=== PATIENT | male | born 1995 | race Caucasian/White ===

== ENCOUNTER 2019-08-21 12:26 | Emergency (ER) | payer OTHER, SELFPAY ==
[2019-08-21 12:51] VITALS: BP 155/96; PULSE 88; RESP 16; TEMP 37.2; O2SAT 97
--- NOTE | 2019-08-21 13:01 | ED.GENADULT ---
HPI - General Adult General Chief complaint: Headache Stated complaint: migraines Time Seen by Provider: 08/21/19 13:01 Source: patient and RN notes reviewed Mode of arrival: ambulatory Limitations: no limitations History of Present Illness HPI narrative: 24-year-old male presents with complains of intermittent headache with aura of nausea and vomiting for past 3 days. Tylenol, last on 08/20/19 and cold wash cloth with relief, no treatment today. Currently pain and nausea free. [facility] says RICHARDS is not the WORST of his life. No neck stiffness. No fever or chills. No URI symptoms. Gradual onset started 2 days ago. No head injury. Denies history of migraine. Denies dizziness, vision change, confusion, or seizure activity. The patient reports they have not been diagnosed with COVID-19. The patient reports they are not waiting for the results of a COVID-19 lab test. The patient reports they do not have fever, chills, weakness, fatigue, myalgia, or facial swelling. The patient reports they do not have a new or worsening cough or shortness of breath. Denies chest pain. The patient reports they do not have any rhinorrhea, congestion, sore throat, abdominal pain, and diarrhea. Tolerating po intake well. Denies recent traveling. Denies concerns for COVID-19 or exposures been home since [id number] order except for essential household needs, working, and return home. At this time, patient is not suspected of having COVID-19. Some parts of this dictation were generated by voice recognition software and may contain typographical and/or grammatical inaccuracies. Related Data Allergies Allergy/AdvReac Type Severity Reaction Status Date / Time amoxicillin Allergy Mild Rash Verified 10/01/17 11:58 Review of Systems Review of Systems: Narrative: CONSTITUTIONAL: Denies fever, chills, sweats. EYES: Denies visual changes, redness, discharge. ENT: Denies rhinorrhea, congestion, sore throat, otalgia. CARDIOVASCULAR: Denies chest pain, palpitations, edema. RESPIRATORY: Denies dyspnea, wheezing, cough. GASTROINTESTINAL: Denies abdominal pain, or diarrhea. Complains of intermittent nausea, vomiting-Resolved. GENITOURINARY: Denies dysuria, hematuria, abnormal discharge. SKIN: Denies rash or itching. MUSCULOSKELETAL: Denies acute back pain, joint pain, or myalgia. NEUROLOGIC: Denies numbness or focal weakness. Complaints of intermittent headache-Resolved. PSYCHIATRIC: Denies anxiety or depression. All systems reviewed & are unremarkable except as noted in HPI and below. [facility] Past Medical History Medical History (Updated 08/21/19 @ 13:26 by VIVI Thibodeaux) Allergies Surgical History Surgical History (Updated 08/21/19 @ 13:26 by VIVI Thibodeaux) No significant past surgical history Family History Family History (Updated 08/21/19 @ 13:26 by VIVI Thibodeaux) Father Alive and well Mother Diabetes mellitus Social History Social History (Updated 08/21/19 @ 13:27 by VIVI Thibodeaux) Smoking packs per day: 0.25 Smoking cigarettes per day: 5.0 Years smoked: 6 Smoking pack-years: 1.50 Smoking status: Light tobacco smoker Tobacco type: cigarettes Second hand tobacco smoke exposure: No Alcohol intake: current Substance use: never Living arrangements: with family Occupation/Education: occupation Gender identity (if verbalized by the patient): Male Comments At time of signature, agree with nurse past medical, surgical, social, and family history. There is no relevant family history pertinent to the presenting complaint. Exam Narrative: Exam Narrative: GENERAL: This is a well-nourished, well-developed patient, in no apparent distress. Talks in full sentences, no language deficiencies and ambulates with steady gait without dyspnea. HEAD: normocephalic, atraumatic. EYES: PERRL. Sclera clear/white. Vision is grossly intact. EOMI, no nystagmus noted. EARS: External ears normal, au
== END 2019-08-21 13:27 | disposition home or self-care (01) ==
PROVIDERS: Emergency Provider Nurse Practitioner Family
DX: R51 Headache (principal); Z20.828 Contact with and (suspected) exposure to other viral communicable diseases; F17.210 Nicotine dependence, cigarettes, uncomplicated
CPT/HCPCS: 99213; G0463

== ENCOUNTER 2020-04-30 06:50 | Outpatient (NON) | payer OTHER, SELFPAY ==
[2020-04-30 17:33] LABS: SARS-CoV-2 RNA PCR Negative
== END 2020-04-30 06:51 ==
PROVIDERS: Family Provider Internal Medicine; Visit Provider Nurse Practitioner
DX: R05 Cough (principal); Z20.822 Contact with and (suspected) exposure to COVID-19
CPT/HCPCS: C9803; U0003; U0005